=== PATIENT | female | born 1955 | race Caucasian/White ===

== ENCOUNTER 2019-04-05 04:59 | Emergency (ER) | payer SELFPAY ==
--- NOTE | 2019-04-05 05:20 | ED ---
Palpitations / Dysrhythmia - HPI Summary HPI Summary: Pt is a 64 y/o F presenting to the ED with a chief complaint of a dysrhythmia initially onset at 0200 this date. She woke up out of sleep with a rapid heart rate, and states she could not get it to slow down. She also reports N/V/D and some lightheadedness. She denies SOB, LE edema, or diaphoresis. She states she felt somewhat better after each episode of diarrhea. - History of Current Complaint Chief Complaint: EDDysrhythmPalp Hx Obtained From: Patient Onset/Duration: Sudden Onset, Lasting Hours, Still Present Timing: Constant Severity Initially: Moderate Severity Currently: Moderate Character: Fast Aggravating: Nothing Alleviating: Other - bowel movement Associated Signs & Symptoms: Lightheadedness, Nausea, Vomiting - Allergy/Home Medications Allergies/Adverse Reactions: Allergies Allergy/AdvReac Type Severity Reaction Status Date / Time No Known Allergies Allergy Verified 04/05/19 05:15 PMH/Surg Hx/FS Hx/Imm Hx Previously Healthy: Yes Endocrine/Hematology History: Reports: Hx Thyroid Disease - NODULES Denies: Hx Diabetes Cardiovascular History: Denies: Hx Hypertension Respiratory History: Denies: Hx Asthma GI History: Denies: Hx Ulcer - Surgical History Surgery Procedure, Year, and Place: PARTIAL THYROID NODULE REMOVAL. POLYPS IN UTERUS REMOVED. LUNG ATYPICAL CARCANOID - BENIGN. PARATHYROID SURGERY Infectious Disease History: No Infectious Disease History: Denies: Hx Hepatitis, Hx Human Immunodeficiency Virus (HIV), History Other Infectious Disease, Traveled Outside the [place] in Last 30 Days - Family History Known Family History: Positive: Cardiac Disease - mother of [place], Hypertension - Social History Alcohol Use: Weekly Hx Substance Use: No Substance Use Type: Reports: None Hx Tobacco Use: No Smoking Status (MU): Never Smoked Tobacco Review of Systems Negative: Skin Diaphoresis Negative: Shortness Of Breath Positive: Vomiting, Diarrhea, Nausea Negative: Edema Neurological: Other - lightheadedness All Other Systems Reviewed And Are Negative: Yes Physical Exam - Summary Physical Exam Summary: Appearance: Well-appearing, Well-nourished, lying in bed comfortably Skin: Warm, dry, no obvious rash Eyes: sclera anicteric, no conjunctival pallor ENT: mucous membranes moist, pharynx appears normal Neck: Supple, nontender Respiratory: Clear to auscultation, no signs of respiratory distress Cardiovascular: Regular rapid pulse. No murmurs. Normal distal pulses in tibial and radial bilaterally. Abdomen: Soft, nontender, normal active bowel sounds present Musculoskeletal: Normal, Strength/ROM Intact Neurological: A&Ox3, awake and alert, mentation is normal, speech is fluent and appropriate Psychiatric: affect is normal, does not appear anxious or depressed Triage Information Reviewed: Yes Vital Signs On Initial Exam: Initial Vitals Temp Pulse Resp BP Pulse Ox 99.0 F 120 18 133/90 97 04/05/19 05:00 04/05/19 05:00 04/05/19 05:00 04/05/19 05:00 04/05/19 05:00 Vital Signs Reviewed: Yes Diagnostics - Vital Signs Vital Signs Temp Pulse Resp BP Pulse Ox 04/05/19 05:13 113 13 125/79 96 04/05/19 05:12 111 15 95 04/05/19 05:00 99.0 F 120 18 133/90 97 - Laboratory Result Diagrams: 04/05/19 05:32 04/05/19 05:32 Lab Statement: Any lab studies that have been ordered have been reviewed, and results considered in the medical decision making process. - EKG 0503 Cardiac Rate: Tachycardia - 109bpm EKG Rhythm: Sinus Tachycardia ST Segment: Normal Ectopy: None Summary of EKG Findings: EKG at 0503 shows sinus tachycardia at 109bpm with nml axis, nml intervals, and no STEMI. Course/Dx - Course Course Of Treatment: Pt is a 64 y/o F presenting to the ED with a chief complaint of a dysrhythmia initially onset at 0200 this date. She woke up out of sleep with a rapid heart rate, and states she could not get it to slow down. She also reports N/V/D and some lightheadedness. She denies SOB, LE edema, or diaphoresis. She states she felt somewhat better after each episode of diarrhea. Pt has regular rapid pulse on exam. EKG at 0503 shows sinus tachycardia at 109bpm with nml axis, nml intervals, and no STEMI. As of 0650, the pt's HR is down and she feels better. Her lab work is WNL. She will be d/c' ed with dx of dehydration and diarrhea. She is stable and agreeable with this plan. - Diagnoses Provider Diagnoses: Dehydration, Diarrhea Discharge ED - Sign-Out/Discharge Documenting (check all that apply): Patient Departure Patient Received Moderate/Deep Sedation with Procedure: No - Discharge Plan Condition: Good Disposition: HOME Prescriptions: Ondansetron ODT TAB* [Zofran 4 MG Odt TAB*] 8 mg PO Q6H PRN #12 tab.odt PRN Reason: Nausea Patient Education Materials: Dehydration (ED), Acute Diarrhea (ED) Additional Instructions: Take it easy over the next couple of days. Get plenty of fluids and stick to fluids or bland diet until you feel better. - Billing Disposition and Condition Condition: GOOD Disposition: Home - Attestation Statements Document Initiated by Scribe: Yes Documenting Scribe: Wendy Truong Provider For Whom Gerson is Documenting (Include Credential): Cleveland Powers MD. Scribe Attestation: Wendy Koehler, syded for Cleveland Powers MD. on 04/07/19 at 0437. Scribe Documentation Reviewed: Yes Provider Attestation: The documentation as recorded by the Wendy pisano accurately reflects the service I personally performed and the decisions made by Cleveland you MD. Status of Scribe Document: Viewed
[2019-04-05] MEDS: NS 0.9% 1000 ML** 2,000 ML IV ONE (05:31)
[2019-04-05 05:37] LABS: ABS Basophils 0.1 10^3/ul (0-0.2); ABS Eosinophils 0.1 10^3/ul (0-0.6); ABS Lymphocytes 1.1 10^3/ul (1.0-4.8); ABS Monocytes 0.8 10^3/ul (0-0.8); Eosinophil % 1.2 %; Hematocrit 47 % (35-47); Hemoglobin 15.4 g/dL (12.0-16.0); Lymphocyte % 9.6 %; Mean Corpuscular HGB Conc 33 g/dL (31-36); Mean Corpuscular Hemoglobin 29 pg (27-31); Mean Corpuscular Volume 87 fL (80-97); Mean Platelet Volume 7.4 fL (7.4-10.4); Platelet Count 278 10^3/uL (150-450); Red Blood Count 5.34 10^6 /uL (3.70-4.87); Red Cell Distribution Width 14 % (10-15); White Blood Count 11.1 10^3/uL (3.5-10.8)
[2019-04-05] MEDS: Ondansetron INJ* 2 MG/ML VIAL IV ONE (05:37)
[2019-04-05 06:01] LABS: Albumin 4.3 g/dL (3.2-5.2); Albumin/Globulin Ratio 1.7 (1-3); BUN/Creatinine Ratio 17.8 (8-20); Calcium 9.9 mg/dL (8.6-10.3); EGFR African American 76.5 (>60); EGFR Non-African American 63.2 (>60); Globulin 2.5 g/dL (2-4); Potassium 4.3 mmol/L (3.5-5.0); Total Bilirubin 0.7 mg/dL (0.2-1.0); Total Protein 6.8 g/dL (6.4-8.9)
[2019-04-05 06:33] LABS: TSH (Thyroid Stimulating Horm) 1.42 mcIU/mL (0.34-5.60)
[2019-04-05 07:30] VITALS: BP 128/80
== END 2019-04-05 07:12 | disposition home or self-care (01) ==
LOC: ED 04:59
DX: E86.0 Dehydration (principal); R19.7 Diarrhea, unspecified
CPT/HCPCS: 36415; 80053; 84443; 84484; 85025; 93005; 96361; 96374; 99283; J2405